=== PATIENT | female | born 1960 | race Caucasian/White ===

== ENCOUNTER 2024-11-12 09:23 | Emergency (ER) | payer OTHER, SELFPAY ==
[2024-11-12 09:39] VITALS: BP 132/73; PULSE 73; RESP 18; TEMP 36.8; O2SAT 97; BMI 27.4
--- NOTE | 2024-11-12 10:31 | ED_ITS ---
HPI - Headache General Chief Complaint: Headache Stated Complaint: Migraine, nausea Time Seen by Provider: 11/12/24 10:27 Source: patient Mode of arrival: ambulatory Limitations: no limitations History of Present Illness HPI Narrative: This is 64 years old patient visiting from [place] presented to the emergency department complaining of migraine headache. She states she has history of migraine headache 5 attack during the year this headache is like her usual migraine. She denies any fever chills. She has nausea. MD elicited complaint: headache and migraine Onset (ago): day(s) (1) Onset description: gradually Location: frontal Severity: moderate Quality & Timing: aching and throbbing Exacerbating factors: none Relieving factors: nothing Context: occurred at rest Associated symptoms: nausea and vomiting Treatments prior to arrival: none Related Data Allergies Allergy/AdvReac Type Severity Reaction Status Date / Time No Known Allergies Allergy Verified 11/12/24 09:40 Review of Systems 2 Constitutional: Constitutional: Reports no additional constitutional complaints ENT: Reports system reviewed and no additional complaints, except as documented Cardiovascular: Cardiovascular: Reports no additional cardiovascular complaints Respiratory: Respiratory: Reports no additional respiratory complaints [facility] Past Medical History Attestation statement: The following information was validated with the patient. Social History Social History Smoked in Last 30 Days: No Use of substances other than those prescribed or required for medical reasons: No Advance Directives: No Advance Directives Information Provided: Yes Do you have a plan to hurt others: No Plan Physical Exam 2 Vital Signs: Vital Signs: Last Vital Signs Temp 98.2 F 11/12/24 16:05 Pulse 74 11/12/24 16:05 Resp 18 11/12/24 16:05 BP 137/77 11/12/24 16:05 Pulse Ox 97 11/12/24 16:05 O2 Del Method Room Air 11/12/24 16:05 BMI result Body Mass Index 27.4 No acute distress Const: General: cooperative Nutritional Appearance: average body habitus Orientation/consciousness: patient oriented x3 HEENT: Head: Yes normal to inspection General nose exam: Normal external nose present Face and sinus: Yes normal facial exam Throat: Yes posterior oropharynx normal Eyes: General: appearance normal, both eyes and all related structures V isual Pino: normal visual pino by confrontation Conjunctivae: c onjunctivae normal Corneas: corneas normal Pupils: Equal, round and reactive pupils present Neck: Neck: Yes normal visual inspection, Yes full ROM, Yes no lymphadenopathy, Yes no meningeal signs, Yes trachea midline and Yes supple Resp: Effort & Inspection: normal respiratory effort Auscultation: clear to auscultation bilaterally Cardio: Jugular venous distension: no JVD Rate: regular rate Rhythm: r egular rhythm GI: Inspection: Yes normal to inspection Palpation (GI): Soft to palpation, not firm, nontender and no guarding Skin: General skin exam: no rashes or lesions noted and elasticity normal L esions: no lesions Rashes: no rashes Trauma: no lacerations or abrasions Neuro: General: patient oriented x3 and no meningeal signs Cranial nerves: Yes Equal, round and reactive pupils present Course Reevaluation(s) Reevaluation #1: On re-examination she is better still complaining of a little headache we will go ahead the give a Toradol at this point Time: 15:21 Reevaluation #2: asymptomatic,ADRIAN gone Time: 16:04 Medications Administered Discontinued Medications Generic Name Dose Route Start Last Admin Trade Name Freq PRN Reason Stop Dose Admin Diphenhydramine HCl 25 mg 11/12/24 10:30 11/12/24 10:50 Diphenhydramine Hcl 50 Mg/Ml Vial IVPUSH 11/12/24 10:31 25 mg ONCE ONE Administration Sodium Chloride 1,000 mls @ 999 mls/hr 11/12/24 10:45 11/12/24 11:57 Ns IVCONT 11/12/24 11:45 Infused .Q1H1M YANELIS Infusion Ketorolac Tromethamine 15 mg 11/12/24 15:20 11/12/24 15:41 Ketorolac Tromethamine 15 Mg/Ml Vial IVPUSH 11/12/24 15:21 15 mg ONCE ONE Administration Metoclopramide HCl 10 mg 11/12/24 10:30 11/12/24 10:50 Metoclopramide Hcl 10 Mg/2 Ml Vial IVPUSH 11/12/24 10:31 10 mg ONCE ONE Administration Medical Decision Making Medical Decision Making MDM Narrative: Patient is here complaining of migraine headache her headache is similar to prior migraine, we are going to go ahead and administer IV fluid analgesia and reassess Differential Diagnosis Differential Diagnoses: The differential diagnosis associated with the presentation includes Migraine headache, viral syndrome, tension headache Admission/Observation Consideration of admission/observation: Escalation of care including admission/observation considered Lab Data MDM Lab Attestation statement: I reviewed the patient's lab results. 11/12/24 10:42 11/12/24 10:42 Labs: Lab Results 11/12/24 Range/Units 10:42 WBC 7.6 (4.8-10.8) X10*3/uL RBC 4.03 L (4.20-5.50) X10*6/uL Hgb 12.7 (12.0-16.0) g/dl Hct 38.3 (37.0-47.0) % MCV 95.0 (80.0-98.0) fL MCH 31.5 (27.0-33.0) pg MCHC 33.2 (31.0-35.0) g/dl RDW 11.6 (11.0-16.0) % Plt Count 215 (160-400) X10*3/uL MPV 8.7 L (9.4-12.3) fL Immature Gran % (Auto) 0.3 (0.0-0.4) % Neut % (Auto) 84.9 H (45-73) % Lymph % (Auto) 10.6 L (20-40) % Douglas % (Auto) 3.8 (2-11) % Eos % (Auto) 0.0 (0-4) % Baso % (Auto) 0.4 (0-2) % Lymph # (Auto) 0.8 L (1.2-4.9) X10*3/uL Douglas # (Auto) 0.3 (0.1-1.2) X10*3/uL Eos # (Auto) 0.0 (0.0-0.4) X10*3/uL Baso # (Auto) 0.0 (0.0-0.2) X10*3/uL Abs Immat Gran (auto) 0.02 (0.00-0.03) X10*3/uL Absolute Neuts (auto) 6.5 (2.0-8.3) x10*3/uL Absolute Nucleated RBC 0.000 (0.0-0.012) X10*3/uL Nucleated RBC % (auto) 0.0 (0.0-0.2) /100WBC Sodium 136 (135-145) mmol/L Potassium 4.3 (3.3-5.1) mmol/L Chloride 100 (96-108) mmol/L Carbon Dioxide 28 (22-29) mmol/L Anion Gap 12 (12-20) BUN 16 (9-16) mg/dL Creatinine 0.69 (0.5-1.4) mg/dL Estim Creat Clear Calc 91.0 Estimated GFR > 60 Random Glucose 120 H (60-115) mg/dL Calcium 9.4 (8.4-10.2) mg/dL Total Bilirubin 0.4 (0.0-1.0) mg/dL AST 20 (5-31) U/L ALT 11 (0-31) U/L Alkaline Phosphatase 90 (39-117) U/L Total Protein 7.6 (6.5-8.0) g/dL Albumin 4.3 (3.5-5.0) g/dL Discharge Plan Discharge Clinical Impression: Headache Qualifiers: Headache type: unspecified Headache chronicity pattern: acute headache I ntractability: not intractable Qualified Code(s): R51.9 - Headache, unspecified Patient Disposition: Home, Self-Care Instructions: Acute Headache (DC) Print Language: Azerbaijani
[2024-11-12 10:46] LABS: MANUAL DIFF FLAG NO
[2024-11-12 10:48] VITALS: BP 148/95; PULSE 70; RESP 16; TEMP 36.8; O2SAT 99
[2024-11-12 10:48] LABS: Basophils Percent Auto 0.4 % (0-2); Hematocrit 38.3 % (37.0-47.0); Hemoglobin 12.7 g/dl (12.0-16.0); Imm Gran Abs Auto 0.02 X10*3/uL (0.00-0.03); Imm Gran Pct Auto 0.3 % (0.0-0.4); Lymphocytes Absolute Auto 0.8 X10*3/uL (1.2-4.9); Lymphocytes Percent Auto 10.6 % (20-40); Mean Corpuscular HGB Conc 33.2 g/dl (31.0-35.0); Mean Corpuscular Hemoglobin 31.5 pg (27.0-33.0); Mean Platelet Volume 8.7 fL (9.4-12.3); Monocytes Absolute Auto 0.3 X10*3/uL (0.1-1.2); Monocytes Percent Auto 3.8 % (2-11); Neutrophils Absolute Auto 6.5 x10*3/uL (2.0-8.3); Neutrophils Percent Auto 84.9 % (45-73); Platelet Count 215 X10*3/uL (160-400); Red Blood Count 4.03 X10*6/uL (4.20-5.50); Red Cell Distribution Width 11.6 % (11.0-16.0); White Blood Count 7.6 X10*3/uL (4.8-10.8)
[2024-11-12] MEDS: 0.9 % Sodium Chloride 1,000 ML 999 ML IVCONT (10:50)
[2024-11-12] MEDS: Metoclopramide HCl 10 MG/2 ML VIAL IVPUSH (10:50)
[2024-11-12] MEDS: diphenhydrAMINE HCL 50 MG/ML VIAL 25 MG IVPUSH (10:50)
[2024-11-12 11:01] LABS: Alanine Aminotransferase 11 U/L (0-31); Albumin Level 4.3 g/dL (3.5-5.0); Alkaline Phosphatase 90 U/L (39-117); Anion Gap 12 (12-20); Aspartate Amino Transferase 20 U/L (5-31); Bilirubin Total 0.4 mg/dL (0.0-1.0); Blood Urea Nitrogen 16 mg/dL (9-16); Calcium 9.4 mg/dL (8.4-10.2); Carbon Dioxide 28 mmol/L (22-29); Chloride 100 mmol/L (96-108); Estimated Glomerular Filt Rate > 60; Glucose Random 120 mg/dL (60-115); Potassium 4.3 mmol/L (3.3-5.1); Sodium 136 mmol/L (135-145); Total Protein 7.6 g/dL (6.5-8.0)
[2024-11-12 12:22] VITALS: BP 137/83; PULSE 80; RESP 18; TEMP 36.2; O2SAT 97
[2024-11-12] MEDS: Ketorolac Tromethamine 15 MG/ML VIAL IVPUSH (15:41)
[2024-11-12 16:05] VITALS: BP 137/77; PULSE 74; RESP 18; TEMP 36.8; O2SAT 97
[2024-11-12 17:18] VITALS: BP 137/77; PULSE 74; RESP 18; TEMP 36.8; O2SAT 97
== END 2024-11-12 17:18 | disposition home or self-care (01) ==
PROVIDERS: Emergency Provider Emergency Medicine
DX: R51.9 Headache, unspecified (principal); R11.2 Nausea with vomiting, unspecified; Z79.899 Other long term (current) drug therapy
CPT/HCPCS: 36415; 80053; 85025; 96361; 96374; 96375; 99284; 99285; J1200; J1885; J2765